=== PATIENT | female | born 1980 ===

== ENCOUNTER 2023-12-19 10:00 | Emergency (ER) | payer OTHER ==
[~2023-12-19] VITALS: Ht 157.5 cm; Wt 76.2 kg
[~2023-12-19 10:00] MED LIST: CIPR250 PO; PHENA200 PO
[2023-12-19] MEDS ORDERED: Ipratropium/Albuterol SulF 2.5-0.5MG/3 ML Amp INH ONE (10:15)
[2023-12-19] MEDS ORDERED: PRED20 PO (10:34)
[2023-12-19] MEDS ORDERED: ALBU90OI INH (10:34)
== END 2023-12-19 11:04 | disposition home or self-care (01) ==
LOC: ER 10:00
DX: J45.901 Unspecified asthma with (acute) exacerbation (principal); F17.290 Nicotine dependence, other tobacco product, uncomplicated; Z88.0 Allergy status to penicillin
CPT/HCPCS: 94640; 94664; 99285-25